=== PATIENT | male | born 1965 | race African-American/Black ===

== ENCOUNTER 2017-02-10 15:41 | Inpatient (IN) | payer MEDICAID ==
[~2017-02-10] VITALS: Ht 177.8 cm; Wt 64.0 kg
[2017-02-10] MEDS ORDERED: GABA-531 PO (15:49)
[2017-02-10] MEDS ORDERED: SODIUM CHLORIDE 0.9% 1,000 ML IV ONE ×2 (16:05→17:31)
[2017-02-10 16:34] LABS: BASOPHILS % 0.6 % (0.0-2.0); EOSINOPHILS % 0.1 % (0.0-5.0); HEMATOCRIT. 33.6 % (42.0-52.0); HEMOGLOBIN. 10.9 g/dL (14.0-18.0); INR 1.3; LYMPHOCYTES % 21.7 % (20.0-50.0); MEAN CORPUSCULAR HEMOGLOBIN 27.8 pg (28.0-32.0); MEAN CORPUSCULAR VOLUME 85.9 fL (80.0-94.0); MEAN PLATELET VOLUME 7.9 fl (7.4-10.4); MONOCYTES % 7.3 % (2.0-8.0); NEUTROPHILS % 70.3 % (40.0-76.0); PARTIAL THROMBOPLASTIN TIME 24.9 sec (23.4-31.0); PLATELET 75 x1000/uL (130-400); PROTHROMBIN TIME 13.4 sec (9.4-11.6); RED BLOOD CELL COUNT 3.91 mill/uL (4.7-6.1); RED CELL DISTRIBUTION WIDTH 16.3 % (11.6-14.6)
[2017-02-10 16:44] LABS: CARBON DIOXIDE 15 mEq/L (21-32); CHLORIDE 100 mEq/L (98-107); CREATINE KINASE 324 IU/L (39-308); CREATINE KINASE MB FRACTION 2.3 ng/mL (0.5-3.6); ETHANOL BLOOD < 10 mg/dL; TROPONIN I < 0.02 ng/mL (0.00-0.04)
[2017-02-10] MEDS ORDERED: PHENYTOIN SODIUM 1,000 MG in SODIUM CHLORIDE 0.9% 100 ML IV ONE (17:45)
[2017-02-10 18:37] LABS: *AMPHETAMINES SCREEN URINE NEGATIVE (NEGATIVE); *BARBITURATES SCREEN URINE NEGATIVE (NEGATIVE); *BENZODIAZEPINES SCREEN URINE NEGATIVE (NEGATIVE); *COCAINE SCREEN URINE NEGATIVE (NEGATIVE); CANNABINOID URINE SCREEN NEGATIVE (NEGATIVE); METHADONE URINE SCREEN NEGATIVE (NEGATIVE); OPIATES URINE SCREEN NEGATIVE (NEGATIVE); PHENCYCLIDINE URINE SCREEN NEGATIVE (NEGATIVE)
[2017-02-10 20:45] VITALS: BP 138/74
[2017-02-10] MEDS ORDERED: ONDANSETRON HCL 4MG/2ML VIAL IV PRN (21:45)
[2017-02-10] MEDS ORDERED: CLONIDINE 0.1MG TABLET PO PRN (21:45)
[2017-02-10] MEDS ORDERED: MAGNESIUM/ALUMINUM HYDROXIDE/SIMETHICONE 30ML UDC PO PRN (21:45)
[2017-02-10] MEDS: LORAZEPAM 2MG/ML CPJ IV PRN (22:27)
[2017-02-10] MEDS: ACETAMINOPHEN 325MG TABLET PO PRN (23:10)
[2017-02-10 23:31] VITALS: BP 123/81
[2017-02-10] MEDS ORDERED: MVI, ADULT NO.1 10 ML, FOLIC ACID 1 MG, THIAMINE HCL 100 MG in SODIUM CHLORIDE 0.9% 1,0... IV NR ×4 (23:59)
[2017-02-11 03:44] LABS: CLARITY URINE CLEAR (CLEAR); COLOR URINE YELLOW (YELLOW); GLUCOSE URINE NEGATIVE (NEGATIVE); KETONES URINE NEGATIVE (NEGATIVE); LEUKOCYTE ESTERASE URINE NEGATIVE (NEGATIVE); NITRITE URINE NEGATIVE (NEGATIVE); OCCULT BLOOD URINE NEGATIVE (NEGATIVE); PROTEIN URINE NEGATIVE (NEGATIVE); UROBILINOGEN URINE 0.2 E.U./dL (0.2-1.0)
[2017-02-11 04:00] VITALS: BP 130/79
[2017-02-11] MEDS: OMEPRAZOLE 20MG CAPSULE EXTENDED RELEASE PO SCH (06:06)
[2017-02-11 06:50] LABS: BASOPHILS % 0.6 % (0.0-2.0); EOSINOPHILS % 0.6 % (0.0-5.0); HEMATOCRIT. 28.9 % (42.0-52.0); HEMOGLOBIN. 9.7 g/dL (14.0-18.0); LYMPHOCYTES % 27.1 % (20.0-50.0); MEAN CORPUSCULAR HEMOGLOBIN 28.3 pg (28.0-32.0); MEAN CORPUSCULAR VOLUME 84.6 fL (80.0-94.0); MEAN PLATELET VOLUME 9.1 fl (7.4-10.4); MONOCYTES % 9.8 % (2.0-8.0); NEUTROPHILS % 61.9 % (40.0-76.0); PLATELET 60 x1000/uL (130-400); RED BLOOD CELL COUNT 3.42 mill/uL (4.7-6.1); RED CELL DISTRIBUTION WIDTH 16.2 % (11.6-14.6)
[2017-02-11 07:33] LABS: CARBON DIOXIDE 26 mEq/L (21-32); CHLORIDE 98 mEq/L (98-107)
[2017-02-11 08:00] VITALS: BP 127/77
[2017-02-11] MEDS: MULTIVITAMINS,THER W-MINERALS TABLET PO SCH (08:37)
[2017-02-11] MEDS: FOLIC ACID 1MG TABLET PO SCH (08:37)
[2017-02-11] MEDS: THIAMINE HCL 100MG TABLET PO SCH (08:37)
[2017-02-11] MEDS: DOCUSATE SODIUM 100MG CAPSULE PO SCH (08:37)
[2017-02-11] MEDS ORDERED: POTASSIUM CHLORIDE 20MEQ TABLET SR PO SCH (10:30)
[2017-02-11 12:00] VITALS: BP 125/73
[2017-02-11] MEDS ORDERED: MAGNESIUM 2 G PREMIX 50 ML IV SCH (12:00)
[2017-02-11] MEDS: AZITHROMYCIN 500 MG TABLET PO SCH (12:12)
[2017-02-11 16:00] VITALS: BP 119/81
[2017-02-11 20:00] VITALS: BP 134/84
[2017-02-11] MEDS: LORAZEPAM 2MG/ML CPJ IV PRN (20:39)
[2017-02-11] MEDS: PHENYTOIN SODIUM EXTENDED 100MG CAPSULE PO SCH (20:39)
[2017-02-11] MEDS: ACETAMINOPHEN 325MG TABLET PO PRN (23:59)
[2017-02-12] VITALS: BP 118/77
[2017-02-12 04:00] VITALS: BP 116/81
[2017-02-12] MEDS: OMEPRAZOLE 20MG CAPSULE EXTENDED RELEASE PO SCH (05:48)
[2017-02-12 06:12] LABS: CHLORIDE 98 mEq/L (98-107)
[2017-02-12 06:30] LABS: BASOPHILS % 0.4 % (0.0-2.0); EOSINOPHILS % 1.8 % (0.0-5.0); HEMATOCRIT. 32.5 % (42.0-52.0); HEMOGLOBIN. 10.7 g/dL (14.0-18.0); LYMPHOCYTES % 23.7 % (20.0-50.0); MEAN CORPUSCULAR HEMOGLOBIN 28.2 pg (28.0-32.0); MONOCYTES % 10.6 % (2.0-8.0); NEUTROPHILS % 63.5 % (40.0-76.0); PLATELET 68 x1000/uL (130-400); RED BLOOD CELL COUNT 3.77 mill/uL (4.7-6.1); RED CELL DISTRIBUTION WIDTH 16.4 % (11.6-14.6)
[2017-02-12 06:31] LABS: CARBON DIOXIDE 25 mEq/L (21-32)
[2017-02-12 08:00] VITALS: BP 116/89
[2017-02-12] MEDS: FOLIC ACID 1MG TABLET PO SCH (08:19)
[2017-02-12] MEDS: THIAMINE HCL 100MG TABLET PO SCH (08:19)
[2017-02-12] MEDS: MULTIVITAMINS,THER W-MINERALS TABLET PO SCH (08:19)
[2017-02-12] MEDS: DOCUSATE SODIUM 100MG CAPSULE PO SCH (08:19)
[2017-02-12] MEDS: AZITHROMYCIN 500 MG TABLET PO SCH (08:20)
[2017-02-12] MEDS: ACETAMINOPHEN 325MG TABLET PO PRN ×2 (08:21→20:45)
[2017-02-12 12:00] VITALS: BP 144/86
[2017-02-12] MEDS: CHLORDIAZEPOXIDE 25MG CAPSULE PO SCH (14:59)
[2017-02-12 15:59] LABS: CREATINE KINASE 196 IU/L (39-308)
[2017-02-12 20:00] VITALS: BP 124/87
[2017-02-12] MEDS: PHENYTOIN SODIUM EXTENDED 100MG CAPSULE PO SCH (20:45)
[2017-02-13] VITALS: BP 142/100
[2017-02-13 04:00] VITALS: BP 140/93
[2017-02-13 05:22] LABS: BASOPHILS % 0.6 % (0.0-2.0); EOSINOPHILS % 2.7 % (0.0-5.0); HEMATOCRIT. 31.4 % (42.0-52.0); HEMOGLOBIN. 10.3 g/dL (14.0-18.0); LYMPHOCYTES % 27.2 % (20.0-50.0); MEAN CORPUSCULAR HEMOGLOBIN 28.2 pg (28.0-32.0); MEAN CORPUSCULAR VOLUME 85.5 fL (80.0-94.0); MEAN PLATELET VOLUME 8.6 fl (7.4-10.4); MONOCYTES % 11.5 % (2.0-8.0); PLATELET 91 x1000/uL (130-400); RED BLOOD CELL COUNT 3.67 mill/uL (4.7-6.1); RED CELL DISTRIBUTION WIDTH 16.4 % (11.6-14.6)
[2017-02-13] MEDS: OMEPRAZOLE 20MG CAPSULE EXTENDED RELEASE PO SCH (06:09)
[2017-02-13 06:27] LABS: CARBON DIOXIDE 25 mEq/L (21-32); PHOSPHORUS 2.7 mg/dL (2.5-4.9)
[2017-02-13 07:58] LABS: CHLORIDE 98 mEq/L (98-107)
[2017-02-13 08:00] VITALS: BP 129/83
[2017-02-13] MEDS: AZITHROMYCIN 500 MG TABLET PO SCH (08:18)
[2017-02-13] MEDS: DOCUSATE SODIUM 100MG CAPSULE PO SCH (08:18)
[2017-02-13] MEDS: CHLORDIAZEPOXIDE 25MG CAPSULE PO SCH (08:19)
[2017-02-13] MEDS: THIAMINE HCL 100MG TABLET PO SCH (08:19)
[2017-02-13] MEDS: FOLIC ACID 1MG TABLET PO SCH (08:19)
[2017-02-13] MEDS: MULTIVITAMINS,THER W-MINERALS TABLET PO SCH (08:19)
[2017-02-13] MEDS: ACETAMINOPHEN 325MG TABLET PO PRN (08:19)
[2017-02-13 08:42] LABS: HEPATITIS B SURFACE ANTIGEN NEGATIVE
[2017-02-13] MEDS: LEVETIRACETAM 500MG TABLET PO SCH ×2 (10:41→21:34)
[2017-02-13] MEDS: LORAZEPAM 2MG/ML CPJ IV PRN ×3 (10:41→23:17)
[2017-02-13 12:00] VITALS: BP 101/78
[2017-02-13 16:00] VITALS: BP 129/84
[2017-02-13] MEDS: SODIUM CHLORIDE 0.9% 1,000 ML IV SCH (17:54)
[2017-02-13 20:00] VITALS: BP 129/87
[2017-02-14] VITALS: BP 141/86
[2017-02-14 04:00] VITALS: BP 117/80
[2017-02-14] MEDS: SODIUM CHLORIDE 0.9% 1,000 ML IV SCH ×3 (05:06→11:40)
[2017-02-14 05:55] LABS: HEMATOCRIT. 30.9 % (42.0-52.0); MEAN CORPUSCULAR VOLUME 86.3 fL (80.0-94.0); PLATELET 91 x1000/uL (130-400); RED BLOOD CELL COUNT 3.59 mill/uL (4.7-6.1); RED CELL DISTRIBUTION WIDTH 16.6 % (11.6-14.6)
[2017-02-14] MEDS: OMEPRAZOLE 20MG CAPSULE EXTENDED RELEASE PO SCH (06:35)
[2017-02-14 06:43] LABS: CARBON DIOXIDE 26 mEq/L (21-32); CHLORIDE 102 mEq/L (98-107)
[2017-02-14 07:27] LABS: PHOSPHORUS 3.5 mg/dL (2.5-4.9)
[2017-02-14 08:00] VITALS: BP 122/89
[2017-02-14] MEDS: FOLIC ACID 1MG TABLET PO SCH (08:53)
[2017-02-14] MEDS: CHLORDIAZEPOXIDE 25MG CAPSULE PO SCH (08:53)
[2017-02-14] MEDS: LEVETIRACETAM 500MG TABLET PO SCH ×2 (08:53→21:19)
[2017-02-14] MEDS: DOCUSATE SODIUM 100MG CAPSULE PO SCH (08:53)
[2017-02-14] MEDS: THIAMINE HCL 100MG TABLET PO SCH (08:53)
[2017-02-14] MEDS: AZITHROMYCIN 500 MG TABLET PO SCH (08:53)
[2017-02-14] MEDS: MULTIVITAMINS,THER W-MINERALS TABLET PO SCH (08:53)
[2017-02-14 12:00] VITALS: BP 124/80
[2017-02-14 16:00] VITALS: BP 123/79
[2017-02-14 20:00] VITALS: BP 116/75
[2017-02-14 22:52] LABS: PLATELET ESTIMATE DECREASED
[2017-02-15] VITALS: BP 120/68
[2017-02-15 04:00] VITALS: BP 112/78
[2017-02-15] MEDS: SODIUM CHLORIDE 0.9% 1,000 ML IV SCH ×2 (04:30→19:33)
[2017-02-15] MEDS: OMEPRAZOLE 20MG CAPSULE EXTENDED RELEASE PO SCH (06:31)
[2017-02-15 08:00] VITALS: BP 129/82
[2017-02-15] MEDS: FOLIC ACID 1MG TABLET PO SCH (08:42)
[2017-02-15] MEDS: MULTIVITAMINS,THER W-MINERALS TABLET PO SCH (08:42)
[2017-02-15] MEDS: CHLORDIAZEPOXIDE 25MG CAPSULE PO SCH (08:42)
[2017-02-15] MEDS: DOCUSATE SODIUM 100MG CAPSULE PO SCH (08:42)
[2017-02-15] MEDS: THIAMINE HCL 100MG TABLET PO SCH (08:42)
[2017-02-15] MEDS: AZITHROMYCIN 500 MG TABLET PO SCH (08:42)
[2017-02-15] MEDS: LEVETIRACETAM 500MG TABLET PO SCH ×2 (08:42→21:36)
[2017-02-15 12:00] VITALS: BP 126/80
[2017-02-15 16:00] VITALS: BP 134/80
[2017-02-15 20:00] VITALS: BP 126/81
[2017-02-16] VITALS (12 sets, daily range): BP systolic 124–156; BP diastolic 76–103
[2017-02-16] MEDS: SODIUM CHLORIDE 0.9% 1,000 ML IV SCH ×3 (05:45→22:35)
[2017-02-16 06:17] LABS: HEMATOCRIT. 29.6 % (42.0-52.0); HEMOGLOBIN. 9.5 g/dL (14.0-18.0); MEAN CORPUSCULAR HEMOGLOBIN 27.8 pg (28.0-32.0); MEAN CORPUSCULAR VOLUME 86.3 fL (80.0-94.0); MEAN PLATELET VOLUME 7.9 fl (7.4-10.4); PLATELET 115 x1000/uL (130-400); RED BLOOD CELL COUNT 3.43 mill/uL (4.7-6.1); RED CELL DISTRIBUTION WIDTH 16.4 % (11.6-14.6)
[2017-02-16] MEDS: OMEPRAZOLE 20MG CAPSULE EXTENDED RELEASE PO SCH (06:47)
[2017-02-16 07:41] LABS: CARBON DIOXIDE 25 mEq/L (21-32); CHLORIDE 106 mEq/L (98-107); T4 FREE 0.78 ng/dL (0.76-1.46)
[2017-02-16 10:32] LABS: PLATELET ESTIMATE DECREASED
[2017-02-16] MEDS ORDERED: SODIUM BICARBONATE 4% (2.4MEQ) 5ML VIAL IV ONE (14:33)
[2017-02-16] MEDS ORDERED: LIDOCAINE HCL 1% 20ML VIAL (Pyxis) INJ ONE (14:34)
[2017-02-16] MEDS ORDERED: FENTANYL CITRATE/PF 50MCG/ML 2ML VIAL ONE (14:34)
[2017-02-16] MEDS ORDERED: FENTANYL CITRATE/PF 50MCG/ML 2ML VIAL IV ONE (15:00)
[2017-02-16] MEDS: MULTIVITAMINS,THER W-MINERALS TABLET PO SCH (16:47)
[2017-02-16] MEDS: CHLORDIAZEPOXIDE 25MG CAPSULE PO SCH (16:47)
[2017-02-16] MEDS: THIAMINE HCL 100MG TABLET PO SCH (16:47)
[2017-02-16] MEDS: DOCUSATE SODIUM 100MG CAPSULE PO SCH (16:47)
[2017-02-16] MEDS: LEVETIRACETAM 500MG TABLET PO SCH ×2 (16:47→20:08)
[2017-02-16] MEDS: FOLIC ACID 1MG TABLET PO SCH (16:47)
[2017-02-16] MEDS: ACETAMINOPHEN 325MG TABLET PO PRN (16:48)
[2017-02-17] VITALS (7 sets, daily range): BP systolic 102–142; BP diastolic 60–90
[2017-02-17] MEDS: ACETAMINOPHEN 325MG TABLET PO PRN ×3 (01:13→18:24)
[2017-02-17] MEDS: OMEPRAZOLE 20MG CAPSULE EXTENDED RELEASE PO SCH (06:13)
[2017-02-17] MEDS: SODIUM CHLORIDE 0.9% 1,000 ML IV SCH ×2 (06:13→12:58)
[2017-02-17 07:51] LABS: HEMATOCRIT. 26.6 % (42.0-52.0); HEMOGLOBIN. 8.8 g/dL (14.0-18.0); MEAN CORPUSCULAR HEMOGLOBIN 28.6 pg (28.0-32.0); MEAN CORPUSCULAR VOLUME 86.7 fL (80.0-94.0); MEAN PLATELET VOLUME 7.8 fl (7.4-10.4); PLATELET 138 x1000/uL (130-400); RED BLOOD CELL COUNT 3.07 mill/uL (4.7-6.1); RED CELL DISTRIBUTION WIDTH 15.9 % (11.6-14.6)
[2017-02-17] MEDS: LEVETIRACETAM 500MG TABLET PO SCH ×2 (08:27→21:20)
[2017-02-17] MEDS: FOLIC ACID 1MG TABLET PO SCH (08:27)
[2017-02-17] MEDS: CHLORDIAZEPOXIDE 25MG CAPSULE PO SCH (08:27)
[2017-02-17] MEDS: THIAMINE HCL 100MG TABLET PO SCH (08:27)
[2017-02-17] MEDS: DOCUSATE SODIUM 100MG CAPSULE PO SCH (08:27)
[2017-02-17] MEDS: MULTIVITAMINS,THER W-MINERALS TABLET PO SCH (08:27)
[2017-02-17 10:12] LABS: CARBON DIOXIDE 24 mEq/L (21-32); CHLORIDE 107 mEq/L (98-107)
[2017-02-17] MEDS ORDERED: MAGNESIUM 1 G PREMIX 100 ML IV NR (16:30)
[2017-02-17 18:35] LABS: PLATELET ESTIMATE NORMAL
[2017-02-18] VITALS: BP 108/67
[2017-02-18 04:00] VITALS: BP 107/64
[2017-02-18] MEDS: OMEPRAZOLE 20MG CAPSULE EXTENDED RELEASE PO SCH (05:53)
[2017-02-18 06:47] LABS: HEMATOCRIT 27.8 % (42.0-52.0); MEAN CORPUSCULAR VOLUME 86.3 fL (80.0-94.0); PLATELET 163 x1000/uL (130-400); RED BLOOD CELL COUNT 3.22 mill/uL (4.7-6.1); RED CELL DISTRIBUTION WIDTH 16.4 % (11.6-14.6)
[2017-02-18 06:50] LABS: CARBON DIOXIDE 26 mEq/L (21-32); CHLORIDE 106 mEq/L (98-107)
[2017-02-18 08:00] VITALS: BP 116/73
[2017-02-18 09:08] LABS: IMMUNOGLOBULIN A 339 mg/dL (90-386); IMMUNOGLOBULIN G 1326 mg/dL (700-1600); IMMUNOGLOBULIN M 88 mg/dL (20-172)
[2017-02-18] MEDS: LEVETIRACETAM 500MG TABLET PO SCH (09:40)
[2017-02-18] MEDS: DOCUSATE SODIUM 100MG CAPSULE PO SCH (09:40)
[2017-02-18] MEDS: MULTIVITAMINS,THER W-MINERALS TABLET PO SCH (09:40)
[2017-02-18] MEDS: FOLIC ACID 1MG TABLET PO SCH (09:40)
[2017-02-18] MEDS: THIAMINE HCL 100MG TABLET PO SCH (09:40)
[2017-02-18 11:29] VITALS: BP 128/81
[2017-02-18 12:00] VITALS: BP 128/81
== END 2017-02-18 12:00 | disposition home or self-care (01) | DRG 53 ==
LOC: ER 16:02 → EDBD 16:02 → 5WST 17:43 → CANRESERV 20:11 → ENRESERV 20:11 → 5WST 02-13 13:41
PROVIDERS: ADMIT Family Medicine Adult Medicine; ATTEND Family Medicine Adult Medicine
PROC: 0BBC3ZX Excision of Right Upper Lung Lobe, Percutaneous Approach, Diagnostic (ICD-10-PCS; principal; 2017-02-16)
DX: G40.909 Epilepsy, unspecified, not intractable, without status epilepticus (principal); D61.818 Other pancytopenia; D68.9 Coagulation defect, unspecified; E44.0 Moderate protein-calorie malnutrition; E83.42 Hypomagnesemia; D64.9 Anemia, unspecified; J40 Bronchitis, not specified as acute or chronic; R74.0 Nonspecific elevation of levels of transaminase and lactic acid dehydrogenase [LDH]; E87.6 Hypokalemia; F10.20 Alcohol dependence, uncomplicated; M89.9 Disorder of bone, unspecified; R91.1 Solitary pulmonary nodule; Z16.21 Resistance to vancomycin; H11.30 Conjunctival hemorrhage, unspecified eye; Y90.9 Presence of alcohol in blood, level not specified; Z80.42 Family history of malignant neoplasm of prostate; Z83.3 Family history of diabetes mellitus; Z79.899 Other long term (current) drug therapy; Z68.20 Body mass index [BMI] 20.0-20.9, adult; Z59.0 Homelessness; Z91.14 Patient's other noncompliance with medication regimen
CPT/HCPCS: 32405; 36415; 70450; 70551; 71010; 71250; 74176; 77012; 80048; 80053; 80185; 80305; 81003; 82550; 82553; 82784; 83690; 83735; 83880; 84100; 84439; 84443; 84484; 85025; 85027; 85610; 85730; 86334; 86803; 87040; 87086; 87186; 87340; 87804; 88305; 88307; 93005; 96361; 96365; 97110; 97112; 97116; 97162; 99291; C1893; G0482; J1165; J2060; J3010; J3411; J3475; J3490; J7030; J7050

== ENCOUNTER 2017-03-06 04:16 | Emergency (ER) | payer MEDICAID ==
[~2017-03-06] VITALS: Ht 167.6 cm; Wt 70.0 kg
[~2017-03-06 04:16] MED LIST: GABA-531 PO
[2017-03-06] MEDS ORDERED: LEVETIRACETAM 500MG PREMIX 100 ML IV ONE (04:45)
[2017-03-06 05:02] LABS: EOSINOPHILS % 3.7 % (0.0-5.0); HEMATOCRIT. 35.8 % (42.0-52.0); HEMOGLOBIN. 11.6 g/dL (14.0-18.0); LYMPHOCYTES % 71.3 % (20.0-50.0); MEAN CORPUSCULAR HEMOGLOBIN 27.9 pg (28.0-32.0); MEAN CORPUSCULAR VOLUME 85.9 fL (80.0-94.0); MEAN PLATELET VOLUME 7.9 fl (7.4-10.4); MONOCYTES % 7.5 % (2.0-8.0); NEUTROPHILS % 16.5 % (40.0-76.0); PLATELET 177 x1000/uL (130-400); RED BLOOD CELL COUNT 4.17 mill/uL (4.7-6.1); RED CELL DISTRIBUTION WIDTH 17.3 % (11.6-14.6)
[2017-03-06 05:23] LABS: CHLORIDE 110 mEq/L (98-107)
[2017-03-06 05:31] LABS: CARBON DIOXIDE 27 mEq/L (21-32)
[2017-03-06 06:01] VITALS: BP 133/81
== END 2017-03-06 06:07 | disposition home or self-care (01) ==
LOC: ER 04:20
DX: R56.9 Unspecified convulsions (principal); R51 Headache; I10 Essential (primary) hypertension; E11.9 Type 2 diabetes mellitus without complications
CPT/HCPCS: 36415; 70450; 80053; 80185; 82962; 85025; 96365; 99285; J1953

== ENCOUNTER 2017-03-08 11:57 | Emergency (ER) | payer MEDICAID ==
[~2017-03-08] VITALS: Ht 175.3 cm; Wt 75.0 kg
[2017-03-08] MEDS ORDERED: KEPP500 PO (12:04)
[2017-03-08] MEDS ORDERED: LEVETIRACETAM 500MG TABLET PO ONE (13:30)
[2017-03-08 14:11] LABS: BASOPHILS % 1.3 % (0.0-2.0); EOSINOPHILS % 2.2 % (0.0-5.0); HEMATOCRIT. 29.9 % (42.0-52.0); LYMPHOCYTES % 53.5 % (20.0-50.0); MEAN CORPUSCULAR HEMOGLOBIN 28.4 pg (28.0-32.0); MEAN CORPUSCULAR VOLUME 85.1 fL (80.0-94.0); MEAN PLATELET VOLUME 7.6 fl (7.4-10.4); MONOCYTES % 8.6 % (2.0-8.0); NEUTROPHILS % 34.4 % (40.0-76.0); PLATELET 115 x1000/uL (130-400); RED BLOOD CELL COUNT 3.51 mill/uL (4.7-6.1); RED CELL DISTRIBUTION WIDTH 16.8 % (11.6-14.6)
[2017-03-08 14:17] LABS: CHLORIDE 107 mEq/L (98-107)
[2017-03-08 14:28] LABS: CARBON DIOXIDE 25 mEq/L (21-32)
[2017-03-08 14:35] LABS: ETHANOL BLOOD 346 mg/dL
[2017-03-08] MEDS ORDERED: PHENYTOIN SODIUM 1,000 MG in SODIUM CHLORIDE 0.9% 100 ML IV ONE (15:00)
[2017-03-08 18:15] VITALS: BP 110/70
== END 2017-03-08 18:16 | disposition home or self-care (01) ==
LOC: ER 12:05
DX: G40.909 Epilepsy, unspecified, not intractable, without status epilepticus (principal); F10.129 Alcohol abuse with intoxication, unspecified; E11.9 Type 2 diabetes mellitus without complications; I10 Essential (primary) hypertension; Z59.0 Homelessness
CPT/HCPCS: 36415; 80048; 80185; 85025; 96365; 96366; 99285; G0482; J1165; Z7610; J7050

== ENCOUNTER 2017-08-29 20:58 | Emergency (ER) | payer MEDICAID ==
[~2017-08-29] VITALS: Ht 175.3 cm; Wt 73.0 kg
[~2017-08-29 20:58] MED LIST changes: +KEPP500 PO
[2017-08-29] MEDS ORDERED: SODIUM CHLORIDE 0.9% 1,000 ML IV ONE (21:28)
[2017-08-29 22:13] LABS: CLARITY URINE CLEAR (CLEAR); COLOR URINE YELLOW (YELLOW); KETONES URINE NEGATIVE (NEGATIVE); LEUKOCYTE ESTERASE URINE NEGATIVE (NEGATIVE); NITRITE URINE NEGATIVE (NEGATIVE); OCCULT BLOOD URINE NEGATIVE (NEGATIVE); PROTEIN URINE NEGATIVE (NEGATIVE); UROBILINOGEN URINE 0.2 E.U./dL (0.2-1.0)
[2017-08-29 23:20] LABS: *AMPHETAMINES SCREEN URINE NEGATIVE (NEGATIVE); *BARBITURATES SCREEN URINE NEGATIVE (NEGATIVE); *BENZODIAZEPINES SCREEN URINE NEGATIVE (NEGATIVE); *COCAINE SCREEN URINE NEGATIVE (NEGATIVE); CANNABINOID URINE SCREEN NEGATIVE (NEGATIVE); METHADONE URINE SCREEN NEGATIVE (NEGATIVE); OPIATES URINE SCREEN NEGATIVE (NEGATIVE); PHENCYCLIDINE URINE SCREEN NEGATIVE (NEGATIVE)
[2017-08-29 23:57] LABS: BASOPHILS % 1.1 % (0.0-2.0); EOSINOPHILS % 2.4 % (0.0-5.0); HEMATOCRIT. 30.9 % (42.0-52.0); LYMPHOCYTES % 66.7 % (20.0-50.0); MEAN CORPUSCULAR HEMOGLOBIN 25.6 pg (28.0-32.0); MEAN CORPUSCULAR VOLUME 78.9 fL (80.0-94.0); MEAN PLATELET VOLUME 7.9 fl (7.4-10.4); NEUTROPHILS % 23.8 % (40.0-76.0); PLATELET 73 x1000/uL (130-400); RED BLOOD CELL COUNT 3.92 mill/uL (4.7-6.1)
[2017-08-30 00:04] LABS: CHLORIDE 103 mEq/L (98-107)
[2017-08-30 00:28] LABS: ETHANOL BLOOD 388 mg/dL
[2017-08-30 00:29] LABS: CARBAMAZEPINE < 0.5 ug/mL (4-12); PHENOBARBITAL < 2.1 ug/mL (15.0-40.0); VALPROIC ACID < 3.0 ug/mL (50-100)
[2017-08-30] MEDS ORDERED: PHENYTOIN SODIUM 1,000 MG in SODIUM CHLORIDE 0.9% 100 ML IV ONE (00:45)
[2017-08-30] MEDS ORDERED: LEVETIRACETAM 500MG TABLET PO ONE (00:45)
[2017-08-30 07:05] VITALS: BP 139/68
== END 2017-08-30 07:06 | disposition home or self-care (01) ==
LOC: ER 23:24
DX: G40.909 Epilepsy, unspecified, not intractable, without status epilepticus (principal); F10.129 Alcohol abuse with intoxication, unspecified; D61.818 Other pancytopenia; Z59.0 Homelessness; Z91.14 Patient's other noncompliance with medication regimen
CPT/HCPCS: 36415; 70450; 80053; 80156; 80165; 80184; 80185; 80305; 81003; 82962; 83880; 85025; 93970; 96361; 96365; 96366; 99285; G0482; J1165; J7030; Z7610; J7050